=== PATIENT | female | born 1945 | race African-American/Black ===

== ENCOUNTER 2016-12-10 21:42 | Inpatient (IN) | payer OTHER ==
[~2016-12-10] VITALS: Ht 165.1 cm; Wt 87.9 kg
--- NOTE | ~2016-12-10 | HC ---
[facility] [place] [address] CONSULTATION Name: AMY PARK Room #: 207-P [facility] IN M.R.#: [id number] Admission: 12/10/16 Attend Phys: Maximilian Padgett MD Discharge: 12/13/16 Date of : 45 Report #: [id number] THIS REPORT FOR: //name// CC: Maximilian Gudino MD DATE OF SERVICE: 12/12/2016 DATE OF SERVICE: 12/12/2016 HISTORY OF PRESENT ILLNESS: Amy Gill is a 71-year-old black female, who I was asked to see in the hospital today after she had an episode of chest pain. The patient has a long history of heart disease. She had previous stents placed in her circumflex and right coronary artery at [facility] in 2004. At that time, she did well until 2006. She had recurrent chest pain. Repeat heart catheterization by Dr. Guaman showed a 50% stenosis of the left main artery. The diagonal branch had a 90% stenosis. The stent in the circumflex had no restenosis other than marginal branch with an 80% stenosis. The stent in the right coronary artery is patent, however, there is diffuse disease in the posterior descending and posterolateral branch. There was normal left ventricular function. She then underwent 7-vessel bypass surgery by Dr. Rich Benjamin. She apparently tolerated the surgery well. She has been followed by Dr. Minaya in my office since that time. Her last nuclear stress test in 2013, showed no evidence of ischemic ejection fraction of 65%. She had a carotid Doppler study which showed 20-49% stenosis, left internal carotid artery. The thyroid appeared abnormal at that time. She had an additional screening in 2013, which showed no abdominal aortic aneurysm. Her ABIs were normal at that time. The patient had an echocardiogram in 2013, which showed normal left ventricular function. When she last saw Dr. Minaya in the cardiology clinic in July of this year, she had only occasional episodes of chest pain. However, she notes that 2 nights ago, she is home for the pressure chest, described as a tightness within her ____ right arm. She denied any shortness of breath, diaphoresis, nausea. She takes several nitroglycerin. It did seem to help. She finally drove himself to the Emergency Room. She was admitted. Last night, she again had an episode of chest tightness. No shortness of breath, diaphoresis, nausea. ____ take a deep breath. She denied any recent fever, cough, blood in stool. The pain was not related to food. Morphine seemed to help. She denied any trauma to her chest. She denies exertional dyspnea, palpitations, syncope, peripheral edema, leg pain. PAST MEDICAL HISTORY: Otherwise, significant for hysterectomy, hypertension, diabetes, hyperlipidemia. CURRENT MEDICATIONS: Consist of diltiazem, hydrochlorothiazide, Crestor, Imdur, aspirin, Protonix, potassium, Januvia, iron supplements and aspirin a day. [facility] [address] [place] [address] CONSULTATION Name: DONAVAN GILLAMY Room #: 207-P DIS IN M.R.#: [id number] Admission: 12/10/16 Attend Phys: Maximilian Padgett MD Discharge: 12/13/16 Date of : 45 Report #: [id number] ALLERGIES: She has no known drug allergies. FAMILY HISTORY: Father had heart disease. SOCIAL HISTORY: She is to her for the past couple of years. 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 Quit smoking 10 years ago. No alcohol abuse. REVIEW OF SYSTEMS: She has had no history of stroke. She has had asthma in the past. No history of peptic ulcer disease. She has been diagnosed with hepatis C in the past. No kidney disease, no cancer. No psychiatric illness. PHYSICAL EXAMINATION: GENERAL: Revealed an elderly female, appeared in no distress. VITAL SIGNS: She had a blood pressure of 140/60, pulse 60. She is afebrile. HEENT: She is anicteric. Conjunctivae are pink. Mucous membranes are moist. NECK: Veins nondistended. No carotid bruits heard. CHEST: Clear to auscultation. CARDIOVASCULAR: Regular rate and rhythm. ABDOMEN: Soft, nontender. EXTREMITIES: Had no edema. Dorsalis pedis pulse could not be palpated. SKIN: Cool and dry. NEUROLOGIC: Nonfocal. LABORATORY DATA: Her ECG showed a sinus rhythm, small inferior Q-waves, nonspecific ST and T-wave changes. Her workup in the Emergency Room, she had a chest x-ray that showed cardiomegaly, small left pleural effusion. Her lab work, sodium 144, BUN 19, creatinine 1.3, glucose 108. Liver function studies were normal. Troponins all 0.04. White blood cell count 6.9, hemoglobin 9.7. IMPRESSION AND RECOMMENDATIONS: 1. Possible unstable angina. Recommend cardiac catheterization. 2. Hypertension. The patient has been on a calcium moises, diuretics. 3. Hyperlipidemia. The patient is on a statin drug. 4. Diabetes. 5. Anemia. No history of bleeding. 6. History of hepatitis C. <ELECTRONICALLY SIGNED> By: Kaveh Albrecht MD, [facility] 12/17/16 0755 0717 Kaveh Albrecht MD, FACC /nt
--- NOTE | ~2016-12-10 | CATHLAB ---
[facility] [address] [place] [address] INVASIVE PROCEDURE REPORT Name: GIFTY PARK Room #: 207-P [facility] IN ..#: [id number] Admission: 12/10/16 Attend Phys: Maximilian Padgett Discharge: 12/13/16 Date of : 45 Date of Service: 12/13/16 1542 Report #: [id number] THIS REPORT FOR: //name// APPROVED REPORT Patient Details Patient Status: In-Patient Room #: 207 The patient is a 71 year-old female Event Personnel Kaveh Albrecht Ultrasound Technologist, Jessica Caicedo RN RN, Janis Bardales Scrub, Kaveh Hernandez Monitor, Chanel Edwards RTR Scrub Procedures Performed Left Heart Cath Coronaries, Bypass Grafts [id number] LHCCORCABG RICHY Revasc Graft Single OM C9604 SVGREVSING , PTCA with Stenting Indication Unstable angina Risk Factors Arterial HypertensionDysplipidemia Previous Procedures/Diagnoses Previous CABGPrevious PCI Admission/Lab Medications/Medications given during procedure 0.9% Sodium Chloride IV 100 ml per hr, Versed IV 2 mg, Fentanyl IV 25 mcg, Heparin IV 5000 units, Heparin IV 1000 units, Ticagrelor PO 180 mg Procedure Narrative The patient was brought electively to the Cardiac Catheterization Laboratory and was prepped and draped in a sterile manner. The right femoral was infiltrated with 1% Lidocaine subcutaneous anesthesia. A 6 nigerien sheath was inserted into the right femoral artery. Coronary angiography was performed using coronary diagnostic catheters. The right coronary system was accessed and visualized with a Diagnostic catheter. The left coronary system was accessed and visualized with a Diagnostic catheter. The left ventricle was accessed and visualized with a Diagnostic catheter. Left ventricular/Aortic Valve gradient assessed via catheter pullback. Left ventriculogram was performed in MÁRQUEZ projection. An aortogram of the ascending aorta was performed. [facility] [address] [place] [address] INVASIVE PROCEDURE REPORT Name: GIFTY PARK Room #: 207-P [facility] IN .R.#: [id number] Admission: 12/10/16 Attend Phys: Maximilian Padgett Discharge: 12/13/16 Date of : 45 Date of Service: 12/13/16 1542 Report #: [id number] Closure device was deployed with a Fr Mynx. The patient tolerated the procedure well and there were no complications associated with the procedure. There was no hematoma. Intraoperative Conscious Sedation Sedation start time: 15:12 Case end Time: 16:21 Fentanyl 100 mcg Versed 2 mg Fluoro Time: 12.40 minutes Dose: 2198 mGy Contrast Type and Amount: Visipaque 190 ml Coronary Angiography The patient's coronary anatomy is right dominant. [place] Artery Percent Stenosis Left Main: 80 % Prox LAD: 100 % Mid/Distal LAD: % Circumflex: 100 % RCA: 90 % Ramus: % Grafts (Complete if Previous CABG=Yes: Percent Stenosis) Left Main: % Prox LAD: 0 % Mid/Distal LAD: % Circumflex: 80 % RCA: 0 % Ramus: % Diagnostic Findings The LM is a normal caliber vessel . The LAD is a normal caliber vessel . The LCx is a normal caliber vessel . The RCA is a small caliber vessel . 1. Left main had a distal 80% stenosis. 2..lad was occluded after the septal county attorney 2. cx had a proximal stent that was occluded 3. rca stent had 60% restenosis 4. free hanley graft arose from the proximal portion of the cx graft and went to the lad with 0% stenosis 5. anthony was not used 6. svg to pda and sudhir of rca with 0% stenosis 7. svg to diagonal, mid, and distal om had proximal 80% discrete eccentric stenosis 8. following placement of a drug eluting stent, svg to cx had 0% stenosis Left Ventriculography The left ventricle is normal in size with normal contractility. The left ventricular ejection fraction is estimated to be 60-65%. There is no mitral insufficiency. [facility] [address] [place] [address] INVASIVE PROCEDURE REPORT Name: GIFTY PARK Room #: 207-P [facility] IN M.R.#: [id number] Admission: 12/10/16 Attend Phys: Maximilian Padgett Discharge: 12/13/16 Date of : 45 Date of Service: 12/13/16 1542 Report #: [id number] Ascending Aortography There is no aortic insufficiency present. Hemodynamics The aortic pressure is 154/62 mmHg with a mean of 79 mmHg. The left ventricular pressure is 160/14 mmHg with a mean of mmHg. The left ventricular end diastolic pressure is 25 mmHg. There was no gradient across the aortic valve upon pullback. PCI Technique Lesion Anticoagulation was achieved with Heparin. Percutaneous coronary intervention was performed on the svg to the circumflex. The lesion stenosis prior to intervention was 80% with RACHEAL 3 flow. A 6 fr left svg Guide Catheter was used to engage the svg ostium. A [facility] Interventional Guidewire was used to cross the lesion. STENT DEPLOYMENT A drug-eluting stent 12 mm x 3.5 mm was inserted and inflated up to 22atm for 10seconds. Repeat angiography revealed the following post-stent deployment results: 0 %. Final angiography reveals 0 % stenosis with RACHEAL 3 flow. Conclusion 1. occluded lad and cx 2. free hanley graft to lad from proximal svg to om 3. svg to pda and sudhir of rca with 0% stenosis 4. svg to diagonal, mid om, and distal om with 80% proximal stenosis 5. 0% stenosis following drug eluting stent placement in svg 6. EF 60% 7. No AI <ELECTRONICALLY SIGNED> By: Kaveh Albrecht MD, [facility] 12/13/16 1542 1542 1542 Kaveh Albrecht MD, FACC /INF
--- NOTE | ~2016-12-10 | EKG ---
[facility] [place] [address] ELECTROCARDIOGRAM REPORT Name: GIFTY PARK Room #: 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 Analyst: Kev HESS : 1945 Requested By: Kaveh Albrecht Order Number: [id number] : Ash Gilbert Measurements Intervals [place] Rate: 67 P: 34 ID: 148 QRS: 19 QRSD: 101 T: QT: 420 QTc: 444 Interpretive Statements Sinus rhythm Ventricular premature complex Low voltage, precordial leads RSR' in V1 or V2, right VCD or RVH Nonspecific T abnormalities, anterior leads Compared to ECG 12/10/2016 21:52:12 Ventricular premature complex(es) now present Low QRS voltage now present Right ventricular hypertrophy now present RSR' in V1 or V2 now present T-wave abnormality now present Prolonged QT interval no longer present Electronically Signed On 12-15-2016 22:05:15 CDT by Ash Gilbert [email or web address] <ELECTRONICALLY SIGNED> By: Ash Gilbert MD 12/15/16 2205 1724 1724 Ash Gilbert MD /EPI
--- NOTE | ~2016-12-10 | EKG ---
[address] [address] ELECTROCARDIOGRAM REPORT Name: GIFTY PARK Room #: [facility] IN .R.#: [id number] Admission: 12/10/16 Attend Phys: Maximilian Padgett MD Discharge: 12/13/16 Date of : 45 Report #: [id number] THIS REPORT FOR: //name// [facility] Test Date: 2016-12-13 Test Time: 06:36:56 Pat Name: GIFTY MORRISON Department: Room: [facility] Gender: F Cold Patcher: bree : 1945 Requested By: Kaveh Albrecht Order Number: [id number] MD: Delmer Cannon Measurements Intervals [place] Rate: 58 P: 65 AK: 166 QRS: 50 QRSD: 99 T: -22 QT: 461 QTc: 453 Interpretive Statements Sinus rhythm Abnormal R-wave progression, early transition Borderline T abnormalities, diffuse leads Compared to ECG 12/10/2016 21:52:12 T-wave abnormality now present Prolonged QT interval no longer present Electronically Signed On 12-15-2016 15:33:02 CDT by Delmer Cannon [email or web address] <ELECTRONICALLY SIGNED> By: Delmer Cannon MD, [facility] 12/15/16 1533 0636 0636 Delmer Cannon MD, [facility] /EPI
--- NOTE | ~2016-12-10 | EKG ---
[address] [address] ELECTROCARDIOGRAM REPORT Name: GIFTY PARK Room #: 207- ADM IN M.R.#: [id number] Admission: 12/10/16 Attend Phys: Maximilian Padgett MD Discharge: Date of : 45 Report #: [id number] THIS REPORT FOR: //name// 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
--- NOTE | ~2016-12-10 | D ---
[place] [address] DISCHARGE SUMMARY Name: GOGIFTY SMALL Room #: 207-P [facility] IN M.R.#: [id number] Admission: 12/10/16 Attend Phys: Maximilian Padgett MD Discharge: 12/13/16 Date of : 45 Report #: [id number] THIS REPORT FOR: //name// CC: Maximilian Gudino DATE OF SERVICE: 12/13/2016 The patient was admitted to the hospital on 12/10/2016, discharged from the hospital on 12/13/2016. HISTORY OF PRESENT ILLNESS: The patient is a 71-year-old female with complicated past medical history, including coronary artery disease, myocardial infarction, status post stents, who came to the hospital with chest pains. Please refer to the admission H and P for details. HOSPITALIZATION COURSE: The patient was hospitalized at . She was seen and evaluated by bander and cellophaner machine helper. The patient was diagnosed with unstable angina. She had no evidence of myocardial infarction. The patient had cardiac catheterization on 12/12/2016, with a stent placement. The patient had stent in SVG to RCA. The patient did well after procedure, and her hospital stay was uneventful. Currently, the patient feels well, and she is symptom free. She has no chest pain. Her physical examination is acceptable, as documented in the patient's chart. DISCHARGE DIAGNOSES: Unstable angina, status post coronary artery angiography, and stent placements to SVG to RCA on 12/12/2016. SECONDARY DIAGNOSES: Includes coronary artery disease status post coronary artery bypass grafting surgery, diabetes mellitus type 2, dyslipidemia, hypertension, status post myocardial infarction. DISCHARGE MEDICATIONS: Please refer to the medication reconciliation list. FOLLOWUP PLAN: 1. Follow up with the primary care physician as planned. 2. Follow up with the bander and cellophaner machine helper in 2 weeks as advised. <ELECTRONICALLY SIGNED> By: Maximilian Padgett MD 12/18/16 1807 0836 0920 Maximilian Padgett MD /nt
[2016-12-10 22:13] VITALS: BP 165/68
[2016-12-10] MEDS ORDERED: ASPIR 8181 MG PO (22:22)
[2016-12-10] MEDS ORDERED: CALTRATE 600 +1 EAC1 (22:22)
[2016-12-10] MEDS ORDERED: HYDROCHLOROTHIA25 M2 PO (22:23)
[2016-12-10] MEDS ORDERED: CARDIZEM CD 18180 M3 (22:23)
[2016-12-10] MEDS ORDERED: VITAMINC500 PO (22:23)
[2016-12-10] MEDS ORDERED: JANUVIA50 MG (22:24)
[2016-12-10] MEDS ORDERED: AMBIEN 5 MG TABL5 M1 (22:24)
[2016-12-10] MEDS ORDERED: PROTONIX 20 MG20 M1 (22:25)
[2016-12-10] MEDS ORDERED: DAPSONE25 MG (22:25)
[2016-12-10] MEDS ORDERED: BENADRYL25 MG (22:26)
[2016-12-10] MEDS ORDERED: ROSUVASTATIN (22:28)
[2016-12-10 22:42] LABS: ABSOLUTE NEUTROPHILS 4.3 thou/uL (1.4-8.2); BASOPHILS 0.5 % (0.0-2.0); EOSINOPHILS 3.1 % (0.0-3.0); HEMATOCRIT 29.4 % (37.0-47.0); HEMOGLOBIN 9.9 gm/dL (12.0-15.0); LYMPHOCYTES 27.8 % (24.0-44.0); MCH 31.5 pg (26.0-34.0); MCHC 33.7 g/dL (28.0-37.0); MCV 93.5 fL (80.0-100.0); MONOCYTES 9.5 % (1.0-8.0); PLATELET COUNT 244 thou/uL (150-400); POLYS 59.1 % (36.0-66.0); RBC 3.14 mil/uL (4.20-5.00); RDW 14.6 % (10.5-14.5); WBC 7.3 thou/uL (4.0-11.0)
[2016-12-10 22:44] LABS: ANION GAP 11 mmol/L (7-16); BUN 20 mg/dL (7-18); CALCIUM 9.3 mg/dL (8.5-10.1); CHLORIDE 105 mmol/L (98-107); CO2 26 mmol/L (21-32); CREATININE 1.4 mg/dL (0.6-1.0); GLUCOSE 116 mg/dL (74-106); POTASSIUM 3.1 mmol/L (3.5-5.1); SODIUM 142 mmol/L (136-145)
[2016-12-10 22:44] LABS: MANUAL DIFF NO
[2016-12-10 22:57] LABS: APTT 30.3 Seconds (24.5-32.8); PROTIME 10.7 Seconds (9.3-11.4)
[2016-12-10 23:16] LABS: ALBUMIN 4.1 g/dL (3.4-5.0); ALKALINE PHOSPHATASE 78 U/L (46-116); CK-MB MASS 0.7 ng/mL (<0.5-3.6); MAGNESIUM 1.8 mg/dL (1.8-2.4); NT-PRO BRAIN NAT PEPTIDE 121 pg/mL (<300); SGOT 21 U/L (15-37); SGPT 20 U/L (30-65); TOTAL BILIRUBIN 0.5 mg/dL (<0.1-1.0); TOTAL PROTEIN 7.5 g/dL (6.4-8.2); TROPONIN-I < 0.04 ng/mL (<0.04-0.07)
[2016-12-11] VITALS (8 sets, daily range): BP systolic 92–149; BP diastolic 43–105
[2016-12-11 04:34] LABS: HEMATOCRIT 29.2 % (37.0-47.0); HEMOGLOBIN 9.7 gm/dL (12.0-15.0); MCH 31.3 pg (26.0-34.0); MCHC 33.2 g/dL (28.0-37.0); MCV 94.3 fL (80.0-100.0); RBC 3.1 mil/uL (4.20-5.00); WBC 6.9 thou/uL (4.0-11.0)
[2016-12-11 04:42] LABS: CALCIUM 8.8 mg/dL (8.5-10.1); CREATININE 1.3 mg/dL (0.6-1.0); MAGNESIUM 1.8 mg/dL (1.8-2.4); POTASSIUM 3.5 mmol/L (3.5-5.1)
[2016-12-12] VITALS (12 sets, daily range): BP systolic 130–150; BP diastolic 58–72
[2016-12-13 00:09] VITALS: BP 150/71
[2016-12-13 04:12] VITALS: BP 150/71
[2016-12-13 04:19] VITALS: BP 135/58
[2016-12-13 05:03] LABS: HEMATOCRIT 31.6 % (37.0-47.0); HEMOGLOBIN 10.6 gm/dL (12.0-15.0); MCHC 33.6 g/dL (28.0-37.0); MCV 92.2 fL (80.0-100.0); RBC 3.42 mil/uL (4.20-5.00); RDW 14.5 % (10.5-14.5); WBC 8.2 thou/uL (4.0-11.0)
[2016-12-13 05:18] LABS: ALBUMIN 3.6 g/dL (3.4-5.0); CALCIUM 8.6 mg/dL (8.5-10.1); POTASSIUM 3.3 mmol/L (3.5-5.1); TOTAL BILIRUBIN 0.5 mg/dL (<0.1-1.0); TOTAL PROTEIN 7.1 g/dL (6.4-8.2)
[2016-12-13 05:22] LABS: CHOLESTEROL 180 mg/dL (<200); HDL CHOLESTEROL 53 mg/dL (>40); LDL CHOLESTEROL 111 mg/dL (<100); TC:HDL 3.4 Ratio (Not establshd); TRIGLYCERIDE 80 mg/dL (<150); TROPONIN-I < 0.04 ng/mL (<0.04-0.07); VLDL 16 mg/dL (<40)
[2016-12-13 07:57] VITALS: BP 157/68
[2016-12-13] MEDS ORDERED: BRILINTA90 MG PO (08:39)
[2016-12-13] MEDS ORDERED: ROSUVASTATIN PO (08:39)
[2016-12-13 09:42] VITALS: BP 157/68
== END 2016-12-13 11:00 | disposition home or self-care (01) | DRG 247 ==
LOC: ER 21:42 → 2N 23:28 → EROBS 23:28 → 2N 12-11 00:15
PROVIDERS: Emergency Medicine; Internal Medicine Cardiovascular Disease; Internal Medicine Endocrinology, Diabetes & Metabolism; Nurse Practitioner Family
PROC: B2171ZZ Fluoroscopy of Right Internal Mammary Bypass Graft using Low Osmolar Contrast (ICD-10-PCS; principal; 2016-12-13)
PROC: B2121ZZ Fluoroscopy of Single Coronary Artery Bypass Graft using Low Osmolar Contrast (ICD-10-PCS; principal; 2016-12-13)
PROC: B2181ZZ Fluoroscopy of Left Internal Mammary Bypass Graft using Low Osmolar Contrast (ICD-10-PCS; principal; 2016-12-13)
PROC: 027034Z Dilation of Coronary Artery, One Artery with Drug-eluting Intraluminal Device, Percutaneous Approach (ICD-10-PCS; principal; 2016-12-13)
PROC: B2111ZZ Fluoroscopy of Multiple Coronary Arteries using Low Osmolar Contrast (ICD-10-PCS; principal; 2016-12-13)
PROC: 4A023N7 Measurement of Cardiac Sampling and Pressure, Left Heart, Percutaneous Approach (ICD-10-PCS; principal; 2016-12-13)
PROC: B2151ZZ Fluoroscopy of Left Heart using Low Osmolar Contrast (ICD-10-PCS; principal; 2016-12-13)
PROC: B3101ZZ Fluoroscopy of Thoracic Aorta using Low Osmolar Contrast (ICD-10-PCS; principal; 2016-12-13)
DX: I25.710 Atherosclerosis of autologous vein coronary artery bypass graft(s) with unstable angina pectoris (principal); N17.9 Acute kidney failure, unspecified; E11.22 Type 2 diabetes mellitus with diabetic chronic kidney disease; E78.00 Pure hypercholesterolemia, unspecified; D64.9 Anemia, unspecified; N18.9 Chronic kidney disease, unspecified; E87.6 Hypokalemia; E78.5 Hyperlipidemia, unspecified; I12.9 Hypertensive chronic kidney disease with stage 1 through stage 4 chronic kidney disease, or unspecified chronic kidney disease; Z79.899 Other long term (current) drug therapy; I25.2 Old myocardial infarction; Z90.710 Acquired absence of both cervix and uterus; Z82.49 Family history of ischemic heart disease and other diseases of the circulatory system; Z83.3 Family history of diabetes mellitus; Z79.82 Long term (current) use of aspirin; Z95.5 Presence of coronary angioplasty implant and graft; Z98.62 Peripheral vascular angioplasty status; Z87.891 Personal history of nicotine dependence; Z86.19 Personal history of other infectious and parasitic diseases
CPT/HCPCS: 10081

== ENCOUNTER → 2017-01-02 | Outpatient (CLI) | payer OTHER ==
[~2017-01-02] MED LIST: AMBIEN 5 MG TABL5 M1; ASPIR 8181 MG PO; BENADRYL25 MG; BRILINTA90 MG PO; CALTRATE 600 +1 EAC1; CARDIZEM CD 18180 M3; DAPSONE25 MG; HYDROCHLOROTHIA25 M2 PO; JANUVIA50 MG; PROTONIX 20 MG20 M1; ROSUVASTATIN; ROSUVASTATIN PO; VITAMINC500 PO
== END ==
LOC: ULTRA 06:48
DX: I65.23 Occlusion and stenosis of bilateral carotid arteries (principal)

== ENCOUNTER 2017-07-08 21:29 | Inpatient (IN) | payer OTHER ==
[~2017-07-08] VITALS: Ht 167.6 cm; Wt 86.0 kg
--- NOTE | ~2017-07-08 | EKG ---
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: KKODJOVI : 1945 Requested By: Kourtney Carlson Order Number: [id number] MD: Delmer Cannon Measurements Intervals [place] Rate: 72 P: 67 AR: 156 QRS: 51 QRSD: 104 T: -27 QT: 422 QTc: 462 Interpretive Statements Sinus rhythm Abnormal R-wave progression, early transition Nonspecific ST and T wave abnormality Compared to ECG 12/13/2016 06:36:56 No significant change was found Electronically Signed On 07-09-2017 8:30:30 HOSPICE PHYSICIAN by Delmer Cannon [email or web address] <ELECTRONICALLY SIGNED> By: Delmer Cannon MD, FACC 07/09/17 0830 2134 2134 Delmer Cannon MD, [facility] /EPI
--- NOTE | ~2017-07-08 | HC ---
[facility] [place] [address] CONSULTATION Name: DONAVAN MORRISONGIFTY Room #: 209-P ADM IN M.R.#: [id number] Admission: 07/08/17 Attend Phys: Trevin Mancia MD Discharge: Date of : 45 Report #: [id number] THIS REPORT FOR: //name// CC: Trevin Gudino MD DATE OF SERVICE: 07/08/2017 TYPE OF REPORT: Cardiology consultation. HISTORY OF PRESENT ILLNESS: The patient is a 71-year-old black female who I was asked to see in the hospital today after she complained of chest pain. The patient has an extensive past medical history. She underwent coronary artery stenting in 2004 at [facility] with stents placed in her circumflex and right coronary artery. In 2006, she had recurrent chest pain and heart catheterization showed diffuse coronary artery disease with normal left ventricular function. She underwent 7-vessel bypass surgery by Dr. Ben Benjamin. She was actually admitted here to [facility] in December 2016 with recurrent chest pressure. I performed repeat heart catheterization on December 10. This showed 80% narrowing of the left main artery. The LAD was completely occluded, circumflex was occluded and the right coronary had 80% stenosis. There is a vein graft to the right coronary artery and had no restenosis. There is a vein graft to the diagonal and jump graft to the marginal and had an 80% stenosis. There was a SHARP graft to the LAD. Ejection fraction of 60%. I then placed a single drug-eluting stent in the vein graft. She tolerated this well. She was placed on Brilinta. She has done fairly well since that time and stays fairly active. She knows she went down to [place] for the holidays. Down there, she developed a cough, fever and chills and was lying in bed for several days. She was placed on a Z-NOHEMI and her cough is improved. She just drove back from [place] yesterday. However, last weekend, she notes black tarry stools. This lasts for 3 days. She drove herself to the Emergency Room here at [facility] last night, was admitted for further evaluation and treatment. She did note some chest tightness there for about 24 hours. There is no radiation of the pain. She did note some shortness of breath, but no edema. She has had no palpitation or syncope. PAST MEDICAL HISTORY: Otherwise significant for previous hysterectomy. She has a history of hypertension, diabetes and hyperlipidemia. MEDICATIONS: Consists of aspirin a day, Cardizem-CD, Zetia, hydrochlorothiazide, Imdur, Protonix, potassium, Crestor, Januvia and Brilinta. ALLERGIES: She has no known drug allergies. FAMILY HISTORY: Two brothers had stents. [facility] [address] [place] [address] CONSULTATION Name: DONAVAN GAMBOAGIFTY POND Room #: 209-P [facility] IN M.R.#: [id number] Admission: 07/08/17 Attend Phys: Trevin Mancia MD Discharge: Date of : 45 Report #: [id number] SOCIAL HISTORY: She is . She and her live in [place], [place]. 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 She quit smoking 10 years ago. No alcohol abuse. 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 REVIEW OF SYSTEMS: She has had no history of stroke. She had asthma in the past. No history of peptic ulcer disease. She has a previous colonoscopy that showed a polyp. She is diagnosed with hepatitis C in the past, never treated. No kidney disease. No cancer. She has a history of depression, saw a psychiatrist in the past. PHYSICAL EXAMINATION: GENERAL: Elderly female, lying in bed. She appeared in no distress. VITAL SIGNS: She had a blood pressure of 120/70, pulse is 60 and she is afebrile. HEENT: She was anicteric. Conjunctivae pink. Mucous membranes moist. NECK: Veins nondistended. No carotid bruits. CHEST: Clear to auscultation. CARDIAC: Regular rate and rhythm. ABDOMEN: Soft. EXTREMITIES: Had no edema. Dorsalis pedis pulse cannot be palpated. SKIN: Cool and dry. NEUROLOGICAL: Nonfocal. RADIOLOGICAL DATA: ECG shows sinus rhythm and nonspecific T-wave changes. Her workup in the Emergency Room last night included a chest x-ray that showed normal heart size and clear lung lazar. Carotid Doppler study in December showed plaque less than 50%. LABORATORY DATA: Potassium 3.3 and creatinine 1.4. Her troponin 0.04. White blood cell count 7.4 and hemoglobin 9.3. IMPRESSION AND PLAN: 1. Black tarry stool. Suspect upper gastrointestinal bleed. Recommend esophagogastroduodenoscopy. At this time, I would hold the aspirin and Brilinta. 2. Coronary artery disease. Previous drug-eluting stent in December. At this time, I think it is safe to hold aspirin and Brilinta. 3. Diabetes. 4. Mild carotid stenosis. 5. Hypertension. The patient has been on a calcium moises and diuretic. [facility] [address] [address] CONSULTATION Name: GIFTY PARK Room #: 209-P ADM IN M.R.#: [id number] Admission: 07/08/17 Attend Phys: Trevin Mancia MD Discharge: Date of : 45 Report #: [id number] 6. Hyperlipidemia. The patient is on a statin drug. 7. History of hepatitis C. <ELECTRONICALLY SIGNED> By: Kaveh Albrecht MD, FACC 07/10/17 1758 170 51 Kaveh Albrecht MD, FACC /nt
[~2017-07-08 21:29] MED LIST changes: -CARDIZEM CD 18180 M3; +CARDIZEM CD 18180 M3 PO
[2017-07-08 21:37] VITALS: BP 136/60
[2017-07-08 22:59] LABS: ABSOLUTE NEUTROPHILS 4.1 thou/uL (1.4-8.2); BASOPHILS 0.3 % (0.0-2.0); EOSINOPHILS 1.1 % (0.0-3.0); HEMATOCRIT 27.3 % (37.0-47.0); HEMOGLOBIN 9.3 gm/dL (12.0-15.0); LYMPHOCYTES 30.5 % (24.0-44.0); MCHC 34.3 g/dL (28.0-37.0); MCV 87.5 fL (80.0-100.0); PLATELET COUNT 202 thou/uL (150-400); POLYS 60.1 % (36.0-66.0); RBC 3.12 mil/uL (4.20-5.00); RDW 14.5 % (10.5-14.5); WBC 6.8 thou/uL (4.0-11.0)
[2017-07-08 23:07] LABS: ANION GAP 10 mmol/L (7-16); BUN 22 mg/dL (7-18); CALCIUM 9.4 mg/dL (8.5-10.1); CHLORIDE 106 mmol/L (98-107); CO2 28 mmol/L (21-32); CREATININE 1.5 mg/dL (0.6-1.0); GLUCOSE 118 mg/dL (74-106); SODIUM 144 mmol/L (136-145)
[2017-07-08 23:08] LABS: POTASSIUM 2.8 mmol/L (3.5-5.1)
[2017-07-08 23:16] LABS: APTT 25.1 Seconds (24.5-32.8); PROTIME 9.9 Seconds (9.3-11.4)
[2017-07-08 23:17] LABS: TROPONIN-I < 0.04 ng/mL (<0.06)
[2017-07-09 03:32] VITALS: BP 132/75
[2017-07-09 05:09] LABS: HEMATOCRIT 27.3 % (37.0-47.0); HEMOGLOBIN 9.3 gm/dL (12.0-15.0); MCH 30.3 pg (26.0-34.0); MCHC 34.2 g/dL (28.0-37.0); MCV 88.5 fL (80.0-100.0); RBC 3.08 mil/uL (4.20-5.00); RDW 14.4 % (10.5-14.5); WBC 7.4 thou/uL (4.0-11.0)
[2017-07-09 05:15] LABS: CALCIUM 9.1 mg/dL (8.5-10.1); CREATININE 1.4 mg/dL (0.6-1.0); POTASSIUM 3.3 mmol/L (3.5-5.1)
[2017-07-09 11:22] VITALS: BP 125/54
[2017-07-09 12:15] VITALS: BP 123/59
[2017-07-09] MEDS ORDERED: IMDUR 60 MG TAB60 M1 PO (12:41)
[2017-07-09] MEDS ORDERED: PRED FORTE 1% EY5 M1 OPHTHALMIC (12:41)
[2017-07-09] MEDS ORDERED: VALACYCLOVIR500 MG PO (12:42)
[2017-07-09] MEDS ORDERED: ZETIA10 MG PO (12:43)
[2017-07-09] MEDS ORDERED: K-DUR 20 MEQ T20 MEQ PO (12:43)
[2017-07-09] MEDS ORDERED: EYE DROP TEARS15 ML OPHTHALMIC (12:45)
[2017-07-09 15:10] VITALS: BP 117/54
[2017-07-09 20:04] VITALS: BP 132/66
[2017-07-10 04:26] VITALS: BP 118/52
[2017-07-10 08:00] VITALS: BP 131/66
[2017-07-10 12:22] VITALS: BP 140/69
[2017-07-10 20:29] VITALS: BP 136/65
[2017-07-11 04:00] LABS: HEMATOCRIT 28.5 % (37.0-47.0); HEMOGLOBIN 9.6 gm/dL (12.0-15.0); MCH 29.9 pg (26.0-34.0); MCHC 33.5 g/dL (28.0-37.0); MCV 89.3 fL (80.0-100.0); RBC 3.19 mil/uL (4.20-5.00); RDW 14.7 % (10.5-14.5); WBC 7.4 thou/uL (4.0-11.0)
[2017-07-11 04:35] LABS: CALCIUM 8.4 mg/dL (8.5-10.1); POTASSIUM 3.3 mmol/L (3.5-5.1)
[2017-07-11 05:18] VITALS: BP 123/50
[2017-07-11 08:00] VITALS: BP 145/77
[2017-07-11] MEDS ORDERED: PROTONIX40 M1 PO (10:26)
[2017-07-11 11:15] VITALS: BP 145/77
== END 2017-07-11 12:10 | disposition home or self-care (01) | DRG 377 ==
LOC: ER 21:29 → EROBS 23:50 → 2N 23:50 → EROBS 07-09 04:38 → 2N 07-09 11:27 → ENTRNSPT 07-11 12:00 → EDTRNSPTSTS 07-11 12:04 → 2N 07-11 12:10
PROVIDERS: Emergency Medicine; Hospitalist; Nurse Practitioner Family
PROC: 0DJ08ZZ Inspection of Upper Intestinal Tract, Via Natural or Artificial Opening Endoscopic (ICD-10-PCS; principal; 2017-07-10)
DX: K92.2 Gastrointestinal hemorrhage, unspecified (principal); N17.0 Acute kidney failure with tubular necrosis; E11.9 Type 2 diabetes mellitus without complications; I10 Essential (primary) hypertension; D64.9 Anemia, unspecified; E87.6 Hypokalemia; J06.9 Acute upper respiratory infection, unspecified; I25.10 Atherosclerotic heart disease of native coronary artery without angina pectoris; I65.29 Occlusion and stenosis of unspecified carotid artery; J45.909 Unspecified asthma, uncomplicated; E78.5 Hyperlipidemia, unspecified; K21.9 Gastro-esophageal reflux disease without esophagitis; Z86.010 Personal history of colon polyps; Z88.8 Allergy status to other drugs, medicaments and biological substances; I25.2 Old myocardial infarction; Z95.5 Presence of coronary angioplasty implant and graft; Z95.1 Presence of aortocoronary bypass graft; Z90.710 Acquired absence of both cervix and uterus; Z82.49 Family history of ischemic heart disease and other diseases of the circulatory system; Z87.891 Personal history of nicotine dependence; Z86.19 Personal history of other infectious and parasitic diseases; Z83.3 Family history of diabetes mellitus; Z79.82 Long term (current) use of aspirin; Z79.899 Other long term (current) drug therapy; Z91.013 Allergy to seafood
CPT/HCPCS: 10081; 62110; 62900

== ENCOUNTER 2018-07-20 22:40 | Inpatient (IN) | payer OTHER ==
[~2018-07-20] VITALS: Ht 167.6 cm; Wt 78.9 kg
--- NOTE | ~2018-07-20 | HC ---
[facility] [place] [address] CONSULTATION Name: GIFTY PARK Room #: 354-P ADM IN M.R.#: [id number] Admission: 07/20/18 Attend Phys: Tej Guidno MD Discharge: Date of : 45 Report #: [id number] THIS REPORT FOR: //name// CC: Kaveh Gudino DATE OF SERVICE: 07/21/2018 PRIMARY MERCHANDISE EXAMINER: Kaveh Albrecht MD, [facility] PRIMARY CARE DOCTOR: Juliana Gudino MD CHIEF COMPLAINT: Chest pain. HISTORY OF PRESENT ILLNESS: The patient is a 73-year-old female who has been under a lot of stress this week. Her earlier this month. She had onset of severe upper back and chest pain. It lasted 2-3 minutes, then came back and she took a nitro and had minimal relief. Then, she took another one without relief and then she came in after a total of 30 minutes of off and on pain to the Emergency Room. Her ECG was normal and her cardiac troponin levels overnight have been normal and this morning she is chest pain free. She had a PCI in 2017 and these symptoms feel different. At that time, she was having more of a pressure, squeezing sensation and mostly shortness of breath with activity. None of these symptoms were worsened with physical activity. There is a small amount of positional change with her symptoms. She is not short of breath. She denies weight gain, orthopnea, PND or dyspnea with exertion. PAST MEDICAL HISTORY: History of coronary artery disease status post cardiac catheterization and PCI in 12/2016 and she had severe [place] coronary artery disease, she had 90% left main stenosis and a chronically occluded LAD and a chronically occluded proximal circumflex stent and a RCA stent had a 60% in-stent stenosis. Her SHARP to LAD was widely patent. Her vein graft to PDA was widely patent. Her vein graft to diagonal mid and distal circumflex had an 80% proximal stenosis, which was treated with a drug-eluting stent. Her EF was normal. She had a nuclear stress test apparently 7-8 months ago according to the patient, which was normal. She has hypertension, hyperlipidemia. HOME MEDICATIONS: Include aspirin, Imdur 60 mg daily, Zetia 10 mg daily, Cardizem 240 mg p.o. b.i.d., atorvastatin 40 mg daily, Protonix 40 mg daily, baby aspirin [address] [address] CONSULTATION Name: DONAVAN MORRISONGIFTY Room #: 354-P [facility] IN ..#: [id number] Admission: 07/20/18 Attend Phys: Tej Gudino MD Discharge: Date of : 45 Report #: [id number] SOCIAL HISTORY: She is . There is no tobacco or ethanol history actively. REVIEW OF SYSTEMS: PULMONARY: No cough. GENERAL: No fevers or chills. CARDIOVASCULAR: Positive chest pain. No dyspnea, no orthopnea, no PND. MUSCULOSKELETAL: No edema. HEMATOLOGIC: No anemia. RENAL: No history of kidney failure. ENDOCRINE: Positive hyperlipidemia. PHYSICAL EXAMINATION: VITAL SIGNS: Blood pressure 113/55, pulse is 60, O2 sats 96%. GENERAL: This is a pleasant elderly female. She is alert, oriented, in no apparent distress. NECK: Supple. No jugular venous distention. Upstrokes are normal. CARDIOVASCULAR: Regular, I cannot hear a murmur or S3. LUNGS: Clear to auscultation. ABDOMEN: Soft, nontender. EXTREMITIES: No peripheral edema. Electrocardiogram shows a sinus rhythm. No dynamic ST-T wave abnormalities. There is an old inferior infarct, left atrial enlargement. LABORATORY DATA: Cardiac troponin I is 0.06 x 2 sets. Sodium is 146, potassium 3.6, chloride is 109, CO2 is 29, BUN is 13, creatinine is 1.1. Chest x-ray showed no acute process. IMPRESSION: 1. Chest pain. Her symptoms are a bit atypical for this patient in that her symptoms are not exertional like they have been in the past when she has required revascularization. She has been under a lot of stress and anxiety and this could be playing a role in her symptoms, which may be noncardiac. However, given her cardiac history, we will treat this aggressively. I would like to go ahead and start her on another antianginal and have her evaluated as an outpatient by Dr. Albrecht who usually follows her and decide at that time whether or not she needs another heart catheterization versus another stress nuclear, which apparently was without significant abnormalities just within the last 8-10 months ago. 2. Status post coronary artery bypass graft. I would like to add Plavix. 3. Hyperlipidemia. She will continue with aggressive medical therapy including Zetia. 4. Hypertension. This is stable. [facility] [address] [place] [address] CONSULTATION Name: GIFTY PARK Room #: 354-P ADM IN M.R.#: [id number] Admission: 07/20/18 Attend Phys: Tej Gudino MD Discharge: Date of : 45 Report #: [id number] We will arrange for followup to be moved up to next week. By: 0853 [id number] Fred Plummer MD, FACC /nt
[2018-07-20 22:40] VITALS: BP 125/56
[~2018-07-20 22:40] MED LIST changes: -AMBIEN 5 MG TABL5 M1; +AMBIEN 5 MG TABL5 M1 PO; -CALTRATE 600 +1 EAC1; +CALTRATE 600 +1 EAC1 PO; +IMDUR 30 MG TAB30 M1 PO; +K-DUR 20 MEQ T20 MEQ PO; +LUBRICANT EYE15 M1 OPHTHALMIC; +PRED FORTE 1% EY5 M1 OPHTHALMIC; +PROTONIX40 M1 PO; +VALACYCLOVIR500 MG PO; +ZETIA10 MG PO
[2018-07-20 22:57] LABS: ABSOLUTE NEUTROPHILS 3.6 thou/uL (1.4-8.2); BASOPHILS 0.6 % (0.0-2.0); EOSINOPHILS 2.1 % (0.0-3.0); HEMATOCRIT 37.8 % (37.0-47.0); HEMOGLOBIN 12.4 gm/dL (12.0-15.0); LYMPHOCYTES 34.4 % (24.0-44.0); MCH 29.6 pg (26.0-34.0); MCHC 32.9 g/dL (28.0-37.0); MONOCYTES 9.3 % (1.0-8.0); PLATELET COUNT 253 thou/uL (150-400); POLYS 53.6 % (36.0-66.0); RBC 4.21 mil/uL (4.20-5.00); RDW 14.9 % (10.5-14.5); WBC 6.7 thou/uL (4.0-11.0)
[2018-07-20 23:05] LABS: ANION GAP 8 mmol/L (7-16); BUN 11 mg/dL (7-18); CALCIUM 9.3 mg/dL (8.5-10.1); CHLORIDE 107 mmol/L (98-107); CO2 27 mmol/L (21-32); CREATININE 1.2 mg/dL (0.6-1.0); GLUCOSE 150 mg/dL (74-106); POTASSIUM 3.1 mmol/L (3.5-5.1); SODIUM 142 mmol/L (136-145)
[2018-07-20 23:17] LABS: ALBUMIN 3.6 g/dL (3.4-5.0); LIPASE 154 U/L (73-393); SGOT 27 U/L (15-37); SGPT 21 U/L (30-65); TOTAL BILIRUBIN 0.3 mg/dL (<0.1-1.0); TOTAL PROTEIN 7.1 g/dL (6.4-8.2); TROPONIN-I <0.06 ng/mL (<0.06)
[2018-07-21 00:09] VITALS: BP 125/56
[2018-07-21 00:55] VITALS: BP 116/42
[2018-07-21 01:08] VITALS: BP 121/63
[2018-07-21] MEDS ORDERED: JARDIANCE10 MG PO (01:21)
[2018-07-21] MEDS ORDERED: NITROGLYCERIN0.4 MG SUBLING (01:44)
[2018-07-21 04:18] VITALS: BP 113/55
--- NOTE | 2018-07-21 04:40 | NUR ---
RECEIVED REPORT FROM ER NURSE. PT ARRIVED TO ROOM 354 AROUND 0100. ADMISSION HX AND ASSESSSMENT CHARTED. A&OX4. C/O PAIN IN CHEST, WHICH SHE STATES HAS IMPROVED SINCE COMING TO ER. DENIES ANY SOA OR NAUSEA. PAIN DOES NOT RADIATE. FIRE CAPTAIN MARINE WAS HERE TO SEE PT. PT SLEEPING AT THIS TIME. RESP EVEN AND UNLABORED. VSS. BRADYCARDIC 40S-50S; ASYMPTOMATIC. NOTIFIED FIRE CAPTAIN MARINE. WILL CALL CARDIOLOGY CONSULT THIS AM. PT STATED [place] FROM [place] ON 07/11/18. SHE STATES SHE WAS GIVEN SOME ANXIETY MEDICATION LAST WEEK FROM HER DOCTOR, BUT SHE DOES NOT REMEMBER THE NAME OF THE MEDICATION. PROGRESSING SLOWLY TOWARD POC GOALS. WILL CONTINUE TO MONITOR FURTHER.
[2018-07-21 05:20] LABS: ANION GAP 8 mmol/L (7-16); BUN 13 mg/dL (7-18); CHLORIDE 109 mmol/L (98-107); CO2 29 mmol/L (21-32); CREATININE 1.1 mg/dL (0.6-1.0); GLUCOSE 92 mg/dL (74-106); POTASSIUM 3.6 mmol/L (3.5-5.1); SODIUM 146 mmol/L (136-145); TROPONIN-I <0.06 ng/mL (<0.06)
[2018-07-21 06:33] LABS: CHOLESTEROL 114 mg/dL (<200); HDL CHOLESTEROL 48 mg/dL (>40); LDL CHOLESTEROL 56 mg/dL (<100); TC:HDL 2.4 Ratio (Not establshd); TRIGLYCERIDE 52 mg/dL (<150); VLDL 10 mg/dL (<40)
[2018-07-21 07:51] VITALS: BP 119/52
--- NOTE | 2018-07-21 09:22 | EKG ---
[address] [address] ELECTROCARDIOGRAM REPORT Name: GIFTY PARK Room #: 354-P ADM IN M.R.#: [id number] Admission: 07/20/18 Attend Phys: Tej Gudino MD Discharge: Date of : 45 Report #: [id number] THIS REPORT FOR: //name// [facility] ED Test Date: 2018-07-20 Test Time: 22:46:48 Pat Name: GIFTY MORRISON Department: Room: [facility] Gender: F Vasc Tech: KIMBERLY : 1945 Requested By: Alma Delia Fernandez Order Number: [id number] MD: Delmer Cannon Measurements Intervals [place] Rate: 62 P: 58 MA: 161 QRS: 54 QRSD: 104 T: 27 QT: 640 QTc: 650 Interpretive Statements Sinus rhythm Prolonged QT interval Nonspecific ST segment abnormality Compared to ECG 07/08/2017 21:34:41 Early R-wave progression no longer present Electronically Signed On 07-21-2018 9:22:30 [employer] by Delmer Cannon [email or web address] <ELECTRONICALLY SIGNED> By: Delmer Cannon MD, [facility] 07/21/18 0922 [id number] Delmer Cannon MD, [facility] /EPI
[2018-07-21] MEDS ORDERED: CRESTOR40 MG PO (09:29)
[2018-07-21] MEDS ORDERED: XANAX 0.25 MG0.25 MG PO (09:29)
[2018-07-21] MEDS ORDERED: PROTONIX40 M1 PO (09:37)
[2018-07-21] MEDS ORDERED: RANEXA500 MG PO (10:37)
[2018-07-21] MEDS ORDERED: PLAVIX 75 MG TA75 M1 PO (10:38)
[2018-07-21 10:40] VITALS: BP 113/55
--- NOTE | 2018-07-21 12:52 | NUR ---
Assumed care of patient at 0700. Vitals have been stable; sinus [place] on telemetry. Denies any chest pain this shift. Up ad bladimir in room, steady gait. Dr. Plummer rounded on patient this morning. Okay for discharge from his stand-point. Prescriptions written for Ranexa and Plavix and to move appointment up with Dr. Albrecht to sooner than September, patient states moved to August 06. Updated Dr. Guidno of okay to discharge. Awaiting orders. Continue to monitor.
== END 2018-07-21 15:13 | disposition home or self-care (01) | DRG 206 ==
LOC: ER 22:40 → 3W 23:39 → EROBS 23:39 → 3W 07-21 00:56 → ENTRNSPT 07-21 14:53 → 3W 07-21 15:13
PROVIDERS: Nurse Practitioner Acute Care; Nurse Practitioner Family; ADMIT Internal Medicine
DX: M94.0 Chondrocostal junction syndrome [Tietze] (principal); I10 Essential (primary) hypertension; I25.10 Atherosclerotic heart disease of native coronary artery without angina pectoris; E11.9 Type 2 diabetes mellitus without complications; E87.6 Hypokalemia; J45.909 Unspecified asthma, uncomplicated; F32.9 Major depressive disorder, single episode, unspecified; Z91.013 Allergy to seafood; Z87.891 Personal history of nicotine dependence; N28.9 Disorder of kidney and ureter, unspecified; E78.5 Hyperlipidemia, unspecified; I25.2 Old myocardial infarction; Z95.1 Presence of aortocoronary bypass graft; Z95.5 Presence of coronary angioplasty implant and graft; Z90.710 Acquired absence of both cervix and uterus; Z87.01 Personal history of pneumonia (recurrent); Z79.899 Other long term (current) drug therapy; Z91.018 Allergy to other foods; Z79.82 Long term (current) use of aspirin; Z98.1 Arthrodesis status; Z82.49 Family history of ischemic heart disease and other diseases of the circulatory system; Z83.3 Family history of diabetes mellitus

== ENCOUNTER 2018-12-22 19:16 | Inpatient (IN) | payer OTHER ==
[~2018-12-22] VITALS: Ht 165.1 cm; Wt 82.1 kg
--- NOTE | ~2018-12-22 | HC ---
[facility] [place] [address] [place] [address] CONSULTATION Name: GIFTY PARK Room #: 349-I ADM IN M.R.#: [id number] Admission: 12/22/18 ������������������ Attend Phys: Devon Pinedo MD Discharge: ������������������ Date of : 45 Report #: [id number] THIS REPORT FOR: //name// CC: Devon Pinedo Juliana Gudino DATE OF SERVICE: 12/23/2018 PRIMARY MANUFACTURING MAINTENANCE MANAGER: Kaveh Albrecht MD [facility]. CHIEF COMPLAINT: Chest pain. HISTORY OF PRESENT ILLNESS: The patient is a 73-year-old -[place] female with a history of prior bypass surgery who presents with an episode of resting chest discomfort. It lasted about 5 to 10 minutes long. She had just eaten. She is followed by Dr. Albrecht in our practice. She had an ECG without any changes from her previous studies and her cardiac troponin levels today are normal. She denies palpitations, orthopnea or shortness of breath. She is compliant with her medications including Plavix. PAST MEDICAL HISTORY: Significant for coronary artery disease and remote CABG. She had a cardiac catheterization in 2017, which showed that her LAD is occluded, her right coronary artery is subtotally occluded and the circumflex is occluded. Her right coronary artery had a stent that has 60% stenosis and the SHARP to LAD was patent. There is an SVG to the right coronary artery and PDA. There is an SVG to the diagonal, which had an 80% stenosis, which underwent a PCI last 2016. Ejection fraction was normal. MEDICATIONS: Include atorvastatin 40 mg daily, Imdur 30 mg daily, Zetia 10 mg daily, Cardizem 240 mg daily, Plavix 75 mg daily and insulin. SOCIAL HISTORY: Nonsmoker. PAST SURGICAL HISTORY: No recent surgeries. ALLERGIES: CASHEWS AND SHELLFISH. REVIEW OF SYSTEMS: GASTROINTESTINAL: No abdominal pain or nausea, but her symptoms did occur after eating. [facility] [address] [place] [address] CONSULTATION Name: DONAVAN MORRISONGIFTY Room #: 349-I [facility]#: [id number] Admission: 12/22/18 ������������������ Attend Phys: Devon Pinedo MD Discharge: ������������������ Date of : 45 Report #: [id number] PULMONARY: No wheezing or cough. CARDIOVASCULAR: Positive chest discomfort, no dyspnea with exertion. No orthopnea, no PND. SKIN: No rashes. GENERAL: No fevers or chills. HEMATOLOGIC: No anemia. RENAL: No history of kidney failure. PHYSICAL EXAMINATION: VITAL SIGNS: Blood pressure 135/93, pulse 59, temperature is 36.4 and respiratory rate is 20. GENERAL: This is a pleasant -[place] woman. She is alert, in no apparent distress. NECK: Supple. No jugular venous distention. CARDIOVASCULAR: Regular. I cannot hear a murmur. LUNGS: Clear to auscultation bilaterally. ABDOMEN: Soft and nontender. EXTREMITIES: There is no peripheral edema. NEUROLOGIC: There are no focal deficits. IMAGING: Electrocardiogram shows sinus rhythm, inferior infarct, Q-waves, nonspecific flattening of T waves in the anterior precordial leads. LABORATORY DATA: Hemoglobin is 13.3 and platelet count is 220,000. Sodium is 143, potassium 3.3, chloride 108, BUN is 18 and creatinine is 1.2. Troponin I is 0.06 x 2 sets, third set is pending. IMAGING: CT abdomen and pelvis, no evidence of dissection, no PE. IMPRESSION: 1. Angina. She recently had a PCI to the vein graft to her circumflex marginal system and a known chronically occluded LAD, but patent SHARP and vein graft to the right coronary artery. At this point, she is ruled out for myocardial infarction. The third set is pending, but if this is normal, I will defer to Dr. Albrecht to see if he wants any further testing. The previous plan was for continued medical therapy for her coronary artery disease. We could increase her Imdur to 60 mg daily and continue with aspirin and Plavix. 2. Hypertension, stable. 3. Hyperlipidemia. Resume statin. 4. Diabetes mellitus. ��������������������������������������������� ���������������������������������������� By: ��������������������������������������������� 0840 1203 Fred Plummer MD, FACC /nt
[~2018-12-22 19:16] MED LIST changes: +CRESTOR40 MG PO; +JARDIANCE10 MG PO; +NITROGLYCERIN0.4 MG SUBLING; +PLAVIX 75 MG TA75 M1 PO; +RANEXA500 MG PO; +XANAX 0.25 MG0.25 MG PO
[2018-12-22 19:57] VITALS: BP 149/66
[2018-12-22 20:02] LABS: ABSOLUTE NEUTROPHILS 5.6 thou/uL (1.4-8.2); BASOPHILS 0.2 % (0.0-2.0); EOSINOPHILS 1.2 % (0.0-3.0); HEMOGLOBIN 13.3 gm/dL (12.0-15.0); MCH 29.8 pg (26.0-34.0); MCHC 33.4 g/dL (28.0-37.0); MCV 89.3 fL (80.0-100.0); MONOCYTES 8.3 % (1.0-8.0); PLATELET COUNT 220 thou/uL (150-400); POLYS 64.3 % (36.0-66.0); RBC 4.47 mil/uL (4.20-5.00); RDW 14.4 % (10.5-14.5); WBC 8.8 thou/uL (4.0-11.0)
[2018-12-22 20:08] LABS: ANION GAP 10 mmol/L (7-16); BUN 19 mg/dL (7-18); CALCIUM 9.5 mg/dL (8.5-10.1); CHLORIDE 104 mmol/L (98-107); CO2 26 mmol/L (21-32); CREATININE 1.3 mg/dL (0.6-1.0); GLUCOSE 112 mg/dL (74-106); POTASSIUM 3.3 mmol/L (3.5-5.1); SODIUM 140 mmol/L (136-145)
[2018-12-22 20:17] LABS: TROPONIN-I <0.06 ng/mL (<0.06)
[2018-12-23 02:56] LABS: ANION GAP 7 mmol/L (7-16); BUN 18 mg/dL (7-18); CHLORIDE 108 mmol/L (98-107); CO2 28 mmol/L (21-32); CREATININE 1.2 mg/dL (0.6-1.0); GLUCOSE 104 mg/dL (74-106); POTASSIUM 3.3 mmol/L (3.5-5.1); SODIUM 143 mmol/L (136-145)
[2018-12-23 03:05] LABS: TROPONIN-I <0.06 ng/mL (<0.06)
[2018-12-23 06:44] VITALS: BP 125/44
[2018-12-23 07:37] VITALS: BP 132/52
[2018-12-23 08:05] VITALS: BP 135/93
--- NOTE | 2018-12-23 08:24 | EKG ---
[place] [address] [facility] [place] [address] ELECTROCARDIOGRAM REPORT Name: GIFTY PARK Room #: 349-I ADM IN ..#: [id number] ������������������ Admission: 12/22/18 ������������������ Attend Phys: Devon Pinedo MD Discharge: ������������������ Date of : 45 Report #: [id number] ����������������������������������������������������������������� [id number] THIS REPORT FOR: //name// [facility] ED Test Date: 2018-12-22 Test Time: 19:19:15 Pat Name: GIFTY MORRISON Department: Room: [facility] Gender: F Technical Staff Assistant: CHRISTINA : 1945 Requested By: Nahid Kim Order Number: [id number] MD: Delmer Cannon Measurements Intervals [place] Rate: 69 P: 73 [place]: 157 QRS: 59 QRSD: 102 T: -16 QT: 385 QTc: 413 Interpretive Statements Sinus rhythm RSR' in V1 or V2, probably normal variant Nonspecific ST and T wave abnormality Compared to ECG 07/20/2018 22:46:48 Low QRS voltage now present No significant change was found Electronically Signed On 12-23-2018 8:24:41 CDT by Delmer Cannon [email or web address] ��������������������������������������������� <ELECTRONICALLY SIGNED> ���������������������������������������� By: Delmer Cannon MD, [facility] ��������������������������������������������� 12/23/18 0824 18 18 Delmer Cannon MD, [facility] /EPI
--- NOTE | 2018-12-23 08:30 | EKG ---
[place] [address] [facility] [place] [address] ELECTROCARDIOGRAM REPORT Name: GIFTY PARK Room #: 349-I ADM IN ..#: [id number] ������������������ Admission: 12/22/18 ������������������ Attend Phys: Devon Pinedo MD Discharge: ������������������ Date of : 45 Report #: [id number] ����������������������������������������������������������������� [id number] THIS REPORT FOR: //name// [facility] ED Test Date: 2018-12-23 Test Time: 02:22:36 Pat Name: GIFTY MORRISON Department: Room: [facility] Gender: F Registered Pharmacy Technician: CHRISTINA : 1945 Requested By: Nahid Kim Order Number: [id number] MD: Delmer Cannon Measurements Intervals [place] Rate: 51 P: 66 [place]: 178 QRS: 12 QRSD: 126 T: -26 QT: 466 QTc: 430 Interpretive Statements Sinus rhythm Incomplete right bundle branch block Possible Inferior infarct, age indeterminate Compared to ECG 07/20/2018 22:46:48 Inferior Q waves are more prominent Electronically Signed On 12-23-2018 8:29:53 CDT by Delmer Cannon [email or web address] ��������������������������������������������� <ELECTRONICALLY SIGNED> ���������������������������������������� By: Delmer Cannon MD, [facility] ��������������������������������������������� 12/23/18 0829 1 1 Delmer Cannon MD, [facility] /EPI
[2018-12-23 11:05] VITALS: BP 141/60
[2018-12-23] MEDS ORDERED: IMDUR 60 MG TAB60 M1 PO (13:43)
[2018-12-23 13:49] VITALS: BP 141/60
== END 2018-12-23 14:36 | disposition home or self-care (01) | DRG 303 ==
LOC: ER 19:16 → 3W 23:09 → EROBS 23:09 → 3W 12-23 07:40 → ENTRNSPT 12-23 14:21 → EDTRNSPTSTS 12-23 14:23 → 3W 12-23 14:36
PROVIDERS: Emergency Medicine; ADMIT Internal Medicine
DX: I25.110 Atherosclerotic heart disease of native coronary artery with unstable angina pectoris (principal); J45.909 Unspecified asthma, uncomplicated; I10 Essential (primary) hypertension; E78.5 Hyperlipidemia, unspecified; E11.9 Type 2 diabetes mellitus without complications; Z79.84 Long term (current) use of oral hypoglycemic drugs; Z79.82 Long term (current) use of aspirin; I25.2 Old myocardial infarction; Z95.5 Presence of coronary angioplasty implant and graft; Z95.1 Presence of aortocoronary bypass graft; Z90.710 Acquired absence of both cervix and uterus; Z98.1 Arthrodesis status; Z91.013 Allergy to seafood; Z91.018 Allergy to other foods; Z82.49 Family history of ischemic heart disease and other diseases of the circulatory system; Z83.3 Family history of diabetes mellitus; Z87.891 Personal history of nicotine dependence; Z79.899 Other long term (current) drug therapy